=== PATIENT | male | born 1960 | race African-American/Black ===

== ENCOUNTER 2023-04-03 00:29 | Emergency (ER) | payer MEDICAID ==
[~2023-04-03] VITALS: Ht 167.6 cm; Wt 75.0 kg
[~2023-04-03 00:29] MED LIST: AMLO10TA80 PO; L25 PO; LOSA-413 PO; THIA100T88 MT
[2023-04-03 00:30] VITALS: BP 179/111; PULSE 93; RESP 16; TEMP 98; O2SAT 97
[2023-04-03 01:04] LABS: BASOPHILS % 3.3 % (0.0-2.0); EOSINOPHILS % 2.5 % (0.0-5.0); HEMATOCRIT. 37.2 % (42.0-52.0); HEMOGLOBIN. 12.4 g/dL (14.0-18.0); LYMPHOCYTES % 45.9 % (20.0-50.0); MEAN CORPUSCULAR HEMOGLOBIN 30.9 pg (28.0-32.0); MEAN CORPUSCULAR HGB CONC 33.5 g/dL (31.0-37.0); MEAN CORPUSCULAR VOLUME 92.3 fL (80.0-94.0); MEAN PLATELET VOLUME 6.5 fl (7.4-10.4); MONOCYTES % 6.9 % (2.0-8.0); NEUTROPHILS % 41.4 % (40.0-76.0); PLATELET 316 x1000/uL (130-400); RED BLOOD CELL COUNT 4.03 mill/uL (4.7-6.1); WHITE BLOOD COUNT 7.4 x1000/uL (4.5-11.0)
[2023-04-03 01:30] LABS: AMMONIA 24 uMol/L (<32)
[2023-04-03 01:38] LABS: ACETAMINOPHEN < 2 ug/mL (10-30); ALANINE AMINOTRANSFERASE 64 IU/L (10-49); ALBUMIN 4.8 g/dL (3.2-4.8); ASPARTATE AMINOTRANSFERASE 101 IU/L (<34); BILIRUBIN TOTAL 0.7 mg/dL (0.1-1.0); CARBON DIOXIDE 26 mEq/L (21-32); CHLORIDE 101 mEq/L (98-107); GLUCOSE 80 mg/dL (70-105); POTASSIUM 3.7 mEq/L (3.5-5.1); PROTEIN TOTAL 7.9 g/dL (6.0-8.3); SODIUM 138 mEq/L (136-145); UREA NITROGEN BLOOD 8 mg/dL (9-23)
[2023-04-03 01:43] LABS: ETHANOL BLOOD 415 mg/dL (<10)
[2023-04-03] MEDS: SODIUM CHLORIDE 0.9% 1,000 ML IV ONE (02:38)
== END 2023-04-03 07:00 | disposition home or self-care (01) ==
LOC: ER 00:29
DX: F10.129 Alcohol abuse with intoxication, unspecified (principal); I10 Essential (primary) hypertension; Z00.00 Encounter for general adult medical examination without abnormal findings; Z86.59 Personal history of other mental and behavioral disorders; Y90.8 Blood alcohol level of 240 mg/100 ml or more
CPT/HCPCS: 80053; 80307; 80329; 80320; 82140; 85025; 36415; 99283; J7030; G0480